=== PATIENT | male | born 1965 | race Caucasian/White ===

== ENCOUNTER 2016-11-17 15:09 | Emergency (ER) | payer OTHER ==
[2016-11-17 15:24] VITALS: BMI 25.1
[2016-11-17] MEDS ORDERED: SODIUM CHLORIDE 1,000 ML IV ONE (15:24)
[2016-11-17 15:50] LABS: BASOPHIL 0.5 % (0-2.0); EOSINOPHIL 2.5 % (0-4.5); MCH 28.8 pg (25.7-33.7); MCHC 34.1 g/dl (32.0-35.9); MEAN CELL VOLUME 84.4 fl (80-96); MEAN PLT VOLUME 7.7 fl (7.5-11.1); NEUTROPHILS 59.9 % (42.8-82.8); PLATELET COUNT 246 K/MM3 (134-434); WHITE BLOOD COUNT 5.2 K/mm3 (4.0-10.0)
--- NOTE | 2016-11-17 16:11 | EKG ---
Test Reason : Blood Pressure : / mmHG Vent. Rate : 085 BPM Atrial Rate : 085 BPM P-R Int : 128 ms QRS Dur : 084 ms QT Int : 366 ms P-R-T Axes : 055 043 049 degrees QTc Int : 435 ms NORMAL SINUS RHYTHM NORMAL ECG NO PREVIOUS ECGS AVAILABLE Confirmed by MIRANDA AMARO MD ([id number]) on 11/17/2016 4:11:34 PM Referred By: Confirmed By:MIRANDA AMARO MD
[2016-11-17 16:14] LABS: ALBUMIN 4.1 g/dl (3.4-5.0); ANION GAP 6 (8-16); BILIRUBIN,TOTAL 0.5 mg/dL (0.2-1.0); CO2 30 mmol/L (21-32); CREATININE 0.9 mg/dL (0.7-1.3); GLUCOSE,RANDOM 92 mg/dL (74-106); MAGNESIUM 2.3 mg/dL (1.8-2.4); SGOT/AST 14 U/L (15-37); SGPT/ALT 32 U/L (12-78); TOT PROT 6.8 g/dl (6.4-8.2)
--- NOTE | 2016-11-17 16:14 | PDOC ---
History of Present Illness - General History Source: Patient Exam Limitations: No Limitations - History of Present Illness Initial Comments: 11/17/16 16:19 The patient is a 51-year-old man, accompanied by his cousin, with a past medical history of multiple sclerosis and chronic back pain who presents to the emergency department status post syncopal episode. Today. Patient states that he was upstairs, in inpatient, while visiting his mother, who is currently admitted in this facility. Patient states that his mother requested for him to find the nurse for her, when he felt lightheaded and arrived at the door, but lost consciousness. No head injury, as patients father was able to catch him. He reports he has lost consciousness in the past due to hypoglycemia (reports blood glucose of 47, at that time). He denies experiencing chest pain, palpitations, shortness of breath, visual changes, dizziness, prior/post syncopal episode today. Patient admits he is currently stressed, secondary to his mothers health. He currently admits to a throbbing band-like headache. No neck pain, neck stiffness, jaw pain. No recent fevers, chills, generalized weakness. No abdominal pain, cough, nausea, vomiting, diarrhea. Off note, the patient states that he has been experiencing side effects of shortness of breath, secondary to his new medication of Duragesic, for the past few months. No recent change in SOB. Allergies: Iodinated Contrast Dye Social History: Former smoker. He denies ETOH and recreational drug use. <Zaira De Leon - Last Filed: 11/17/16 16:19> <Yong Booth - Last Filed: 11/17/16 18:02> - General Chief Complaint: Syncope/Near Syncope Stated Complaint: SYNCOPE/NEAR SYNCOPE Time Seen by Provider: 11/17/16 15:24 Past History <Zaira De Leon - Last Filed: 11/17/16 16:19> - Past Medical History Cardiac Disorders: (MIGHT NEED ICD?) Other medical history: MS, LEGIONS ON BACK, GENERALIZED WEAKNESS, DIZZINESS - Psycho/Social/Smoking Cessation Hx Suicidal Ideation: No Smoking History: Former smoker Have you smoked in the past 12 months: No If you are a former smoker, when did you quit?: 11/2015 Information on smoking cessation initiated: No Hx Alcohol Use: No Drug/Substance Use Hx: No Substance Use Type: None <Yong Booth - Last Filed: 11/17/16 18:02> - Past Medical History Allergies/Adverse Reactions: Allergies Allergy/AdvReac Type Severity Reaction Status Date / Time CT SCAN DYE Allergy Uncoded 11/17/16 15:24 Home Medications: Ambulatory Orders FENTANYL 75mcg PATCH [DURAGESIC 75mcg PATCH -] 1 each TD Q72H 11/17/16 Hydromorphone [Dilaudid -] 4 mg PO DAILY 11/17/16 Review of Systems - Review of Systems Constitutional: No: Chills, Fever Respiratory: No: Cough, Shortness of Breath Cardiac (ROS): Yes: Syncope. No: Chest Pain, Edema ABD/GI: No: Nausea, Vomiting Musculoskeletal: Yes: Back Pain, Muscle Weakness All Other Systems: Reviewed and Negative <Ady Boothfaele - Last Filed: 11/17/16 18:02> *Physical Exam - Vital Signs Last Vital Signs Temp Pulse Resp BP Pulse Ox 98.8 F 76 17 113/79 98 11/17/16 15:21 11/17/16 15:21 11/17/16 15:21 11/17/16 15:21 11/17/16 15:41 - Physical Exam Comments: 11/17/16 16:20 GENERAL: The patient is awake, alert, and fully oriented, in no acute distress. HEAD: Normal with no signs of trauma. EYES: Pupils equal, round and reactive to light, extraocular movements intact, sclera anicteric, conjunctiva clear with no pallor. ENT: Ears normal, nares patent, oropharynx clear without exudates. Moist mucous membranes. NECK: Normal range of motion, supple without lymphadenopathy, JVD, or masses. LUNGS: Breath sounds equal, clear to auscultation bilaterally. No wheeze/ crackles. HEART: Regular rate and rhythm, normal S1 and S2 without murmur or rub. ABDOMEN: Soft/nontender/nondistended. BS wnl. No guarding or rebound. No palpable masses. No hepatosplenomegaly. EXTREMITIES: Normal range of motion, no edema. No clubbing or cyanosis. No cords, erythema, or tenderness. NEUROLOGICAL: Cranial nerves II through XII grossly intact. Normal speech. PSYCH: Normal mood, normal affect. SKIN: Warm, Dry, normal turgor, no rashes or lesions noted. <Zaira De Leon - Last Filed: 11/17/16 16:19> - Vital Signs Last Vital Signs Temp Pulse Resp BP Pulse Ox 98.8 F 76 17 113/79 98 11/17/16 15:21 11/17/16 15:21 11/17/16 15:21 11/17/16 15:21 11/17/16 15:41 <Yong Booth - Last Filed: 11/17/16 18:02> Heart Score/ECG Review #1 ECG reviewed & interpreted by me at: 15:20 General ECG Interpretation: Sinus Rhythm, Normal Rate (85), Normal Intervals ( qtc 435), No acute ischemic changes <Yong Booth - Last Filed: 11/17/16 18:02> ED Treatment Course - LABORATORY CBC & Chemistry Diagram: 11/17/16 15:28 11/17/16 15:28 - ADDITIONAL ORDERS Additional order review: 11/17/16 15:28 RBC 5.09 MCV 84.4 MCHC 34.1 RDW 13.0 MPV 7.7 Neutrophils % 59.9 Lymphocytes % 27.8 Monocytes % 9.3 Eosinophils % 2.5 Basophils % 0.5 <Zaira De Leon - Last Filed: 11/17/16 16:19> - LABORATORY CBC & Chemistry Diagram: 11/17/16 15:28 11/17/16 15:28 - ADDITIONAL ORDERS Additional order review: 11/17/16 15:28 RBC 5.09 MCV 84.4 MCHC 34.1 RDW 13.0 MPV 7.7 Neutrophils % 59.9 Lymphocytes % 27.8 Monocytes % 9.3 Eosinophils % 2.5 Basophils % 0.5 - RADIOLOGY Radiology Studies Ordered: Category Date Time Status CHEST PA & LAT [RAD] Stat Radiology 11/17/16 15:24 Ordered SPINE-LUMBAR SACRAL [RAD] Stat Radiology 11/17/16 15:45 Ordered <Yong Booth - Last Filed: 11/17/16 18:02> Medical Decision Making - Medical Decision Making 11/17/16 16:09 51 y/o male with history of MS, chronic pain syndromes on multiple pain medications presents status post syncopal episode in the ICU today. She was visiting his mom, who is in the ICU and not doing well, was otherwise feeling well but when he went to call the nurse for a nonemergent matter became suddenly lightheaded, and was witnessed to lose consciousness for a few seconds. He was caught by his father, so there was no direct injury, he had no chest pain or sudden shortness of breath or palpitations. He now feels well, denies any recent infectious or dehydration complaints, he is on a new MS medication but denies any change in his pain medications. Patient does have history of syncope in the past, had normal and complete cardiac workup at that time. Vital signs normal. Exam is normal. 51-year-old male with history of MS presents with syncope without injury. Question vasovagal/orthostatic, rule out ACS or arrhythmia. Question correlation to MS, but seems less likely. Labs, EKG Chest x-ray Patient requesting LS-spine film given history of hardware and feels as though he tweaked his back Reassess, dispo accordingly 11/17/16 16:38 labs unremarkable: no anemia, normal Cr, normal troponin. XRAYS pending, feels well, dispo accordingly. 11/17/16 17:36 On my preliminary review, CXR and LS spine films without acute pathology. Pt comfortable texting on his phone. Agrees with d/c plan, can f/u with cardiology as outpatient. Understands return criteria. 11/17/16 18:00 Upon d/c, patient had recurrence of his back pain and light-headedness. He is a bit unstable on his feet and I told him he should be admitted for further monitoring and care. Family is at bedside, and the patient wants to be discharged. He wants some time to sit up and rest because he would have to sign out AMA. WIll need to sign out to oncoming ED physician to reassess the patient and dispo. <Yong Booth - Last Filed: 11/17/16 18:02> *DC/Admit/Observation/Transfer - Attestations Scribe Attestion: 11/17/16 16:20 Documentation prepared by Zaira De Leon, acting as medical aide for Yong Booth MD. <Zaira De Leon - Last Filed: 11/17/16 16:19> <Yong Booth - Last Filed: 11/17/16 18:02> Diagnosis at time of Disposition: Syncope and collapse - Discharge Dispostion Disposition: HOME Condition at time of disposition: Fair - Referrals Referrals: Skyler Miller MD [Staff Physician] - - Patient Instructions Printed Discharge Instructions: DI for Syncope in Adults (Fainting) Additional Instructions: Activity as tolerated. Stay hydrated. Blood tests, an EKG, and a Chest XRAY showed no acute abnormalities. Continue your medications as previously prescribed by your physician. You should follow up with your primary physician as soon as possible regarding today's emergency department visit. You should also see a glass cleaning machine tender and have an echocardiogram and holter monitor. Return to the emergency department for any new or concerning symptoms, including chest pain, palpitations, difficulty breathing, light headedness or repeat loss of consciousness.
[2016-11-17 16:17] LABS: ALK PHOS 76 U/L (45-117); TROPONIN I < 0.02 ng/ml (0.00-0.05)
[2016-11-17] MEDS ORDERED: ONDANSETRON *ODT* 4 MG TABLET SL ONE (19:01)
[2016-11-17] MEDS ORDERED: ONDANSETRON *ODT* 4 MG TABLET ONE (19:02)
[2016-11-17 19:10] VITALS: BP 135/79; PULSE 81; TEMP 98.1
== END 2016-11-17 19:10 | disposition home or self-care (01) ==
LOC: JER 15:09
PROC: 3E0337Z Introduction of Electrolytic and Water Balance Substance into Peripheral Vein, Percutaneous Approach (ICD-10-PCS; principal; 2016-11-17)
DX: R55 Syncope and collapse (principal); G35 Multiple sclerosis
CPT/HCPCS: 36415; 71020-TC; 72100-TC; 80053; 82550; 83735; 84484; 85025; 93005; 93010; 96360; 99285-25